=== PATIENT | male | born 1975 | race Caucasian/White ===

== ENCOUNTER 2016-10-27 09:47 | Emergency (ER) | payer BC ==
[~2016-10-27] VITALS: Ht 182.9 cm; Wt 75.0 kg
[~2016-10-27 09:47] MED LIST: NO HOME MEDICATIONS
[2016-10-27 09:52] VITALS: TEMP 98
[2016-10-27] MEDS ORDERED: PERCOCET 325 MG1 TA2 PO (10:55)
[2016-10-27 11:37] VITALS: BP 132/82; PULSE 82
== END 2016-10-27 11:39 | disposition home or self-care (01) ==
LOC: COL.ER 09:47
DX: S61.411A Laceration without foreign body of right hand, initial encounter (principal); Z23 Encounter for immunization; W31.2XXA Contact with powered woodworking and forming machines, initial encounter; Y92.009 Unspecified place in unspecified non-institutional (private) residence as the place of occurrence of the external cause
CPT/HCPCS: J0690; J2270; J2405; J7030

== ENCOUNTER → 2017-09-17 | Outpatient (CLI) | payer BC ==
[~2017-09-17] MED LIST changes: +PERCOCET 325 MG1 TA2 PO
== END ==
LOC: COL.RAD 11:47
DX: N50.812 Left testicular pain (principal)